=== PATIENT | female | born 1945 | race Hispanic/Latino ===

== ENCOUNTER 2022-01-05 20:40 | Inpatient (IN) | payer OTHER, MEDICARE ==
[~2022-01-05] VITALS: Ht 147.3 cm; Wt 80.8 kg
[2022-01-05 21:19] LABS: EOSINOPHILS % (AUTO) 2.3 % (0.0-8.0); HEMATOCRIT 33.7 % (36-48); LYMPHOCYTES % (AUTO) 24.3 % (21.0-51.0); MEAN CORPUSCULAR HEMOGLOBIN 27.3 pg (27.0-33.0); MEAN CORPUSCULAR HGB CONC 34.1 g/dL (32.0-36.0); MONOCYTES % (AUTO) 8.4 % (3.0-13.0); NEUTROPHILS % (AUTO) 63.8 % (40.0-77.0); PLATELET COUNT (AUTO) 82 K/uL (130-400); RED BLOOD CELL COUNT(AUTO) 4.21 MIL/uL (4.00-5.50); RED CELL DISTRIBUTION WIDTH 16.2 % (11.0-15.5); WHITE BLOOD COUNT (AUTO) 4.8 K/uL (4.8-10.8)
[2022-01-05 21:31] LABS: INR 1.19 (0.85-1.15); PROTHROMBIN TIME 12.8 SEC (9.6-11.6)
[2022-01-05 21:33] LABS: PARTIAL THROMBOPLASTIN TIME 24.5 SEC (26.3-35.5)
[2022-01-05] MEDS ORDERED: GABA-529 PO (21:33)
[2022-01-05] MEDS ORDERED: SPIR1TAB4 PO (21:33)
[2022-01-05] MEDS ORDERED: TOPI50TA24 PO (21:33)
[2022-01-05] MEDS ORDERED: ERGO500093 PO (21:33)
[2022-01-05] MEDS ORDERED: MECL-160 PO (21:33)
[2022-01-05] MEDS ORDERED: ROSU5TAB12 PO (21:33)
[2022-01-05] MEDS ORDERED: LACT10SO32 PO (21:33)
[2022-01-05] MEDS ORDERED: MIRA50TA PO (21:33)
[2022-01-05] MEDS ORDERED: RIFA550T PO (21:33)
[2022-01-05 21:34] LABS: CREATININE 1.9 mg/dL (0.5-1.5); POTASSIUM 3.8 mmol/L (3.5-5.1)
[2022-01-05 21:41] LABS: ALBUMIN 3.4 g/dL (3.5-5.0); BILIRUBIN,TOTAL 1.4 mg/dL (0.2-1.0); TOTAL PROTEIN, SERUM 7.2 g/dL (6.0-8.3)
[2022-01-05] MEDS ORDERED: INSULIN HUMULIN R 100 UNIT/ML 3ML SQ ONE (22:00)
[2022-01-05] MEDS ORDERED: LACTULOSE 20 GM/30 ML UDCUP PO ONE (22:00)
[2022-01-05] MEDS ORDERED: 0.9%NACL 1000ML 1,000 ML IV SCH (22:00)
[2022-01-05] MEDS ORDERED: ACETAMINOPHEN 325 MG TAB PO PRN (23:00)
[2022-01-05] MEDS ORDERED: GLUCAGON 1MG KIT 1 MG ML IM PRN (23:00)
[2022-01-05] MEDS ORDERED: GABAPENTIN 100 MG CAPSULE PO PRN (23:00)
[2022-01-05] MEDS ORDERED: ONDANSETRON 4MG INJ IVP PRN (23:00)
[2022-01-05] MEDS: PHARMACY COMMUNICATION MISC SCH (23:00)
[2022-01-05] MEDS ORDERED: DEXTROSE 50%-WATER 50 ML DISP.SYRIN IV PRN (23:00)
[2022-01-05] MEDS ORDERED: INSULIN HUMULIN R 100 UNIT/ML 3ML ONE (23:08)
[2022-01-05 23:14] LABS: HEMOGLOBIN A1C 11.5 % (4.0-6.0)
[2022-01-05] MEDS ORDERED: INSLAN SQ (23:15)
[2022-01-05] MEDS: LACTULOSE 20 GM/30 ML UDCUP PO SCH (23:29)
[2022-01-06] VITALS (7 sets, daily range): BP systolic 109–127; BP diastolic 53–72
[2022-01-06] MEDS ORDERED: INSLAN SQ (00:09)
[2022-01-06] MEDS ORDERED: GUAIFENESIN-DM 200/20 MG 10 ML PO PRN (01:30)
[2022-01-06 05:12] LABS: BASOPHILS % (AUTO) 1.1 % (0.0-5.0); EOSINOPHILS % (AUTO) 3.1 % (0.0-8.0); LYMPHOCYTES % (AUTO) 35.2 % (21.0-51.0); MEAN CORPUSCULAR HEMOGLOBIN 26.6 pg (27.0-33.0); MEAN CORPUSCULAR HGB CONC 33.1 g/dL (32.0-36.0); MEAN CORPUSCULAR VOLUME 80.2 fL (79-99); MONOCYTES % (AUTO) 10.2 % (3.0-13.0); NEUTROPHILS % (AUTO) 50.2 % (40.0-77.0); PLATELET COUNT (AUTO) 80 K/uL (130-400); RED BLOOD CELL COUNT(AUTO) 3.99 MIL/uL (4.00-5.50); WHITE BLOOD COUNT (AUTO) 4.5 K/uL (4.8-10.8)
[2022-01-06 05:36] LABS: BILIRUBIN,TOTAL 1.5 mg/dL (0.2-1.0); CREATININE 1.8 mg/dL (0.5-1.5); POTASSIUM 3.4 mmol/L (3.5-5.1); TOTAL PROTEIN, SERUM 6.6 g/dL (6.0-8.3)
[2022-01-06] MEDS: LACTULOSE 20 GM/30 ML UDCUP PO SCH (05:42)
[2022-01-06 07:15] LABS: APPEARANCE,URINE TURBID (CLEAR); BILIRUBIN,URINE SMALL (NEGATIVE); COLOR,URINE BROWN (YELLOW); GLUCOSE, URINE (UA) >=1000 mg/dL (NEGATIVE); KETONES,URINE NEGATIVE (NEGATIVE); LEUKOCYTE ESTERASE ,URINE TRACE (NEGATIVE); NITRATE,URINE POSITIVE (NEGATIVE); OCCULT BLOOD,URINE LARGE (NEGATIVE); PH,URINE 5.5 (5.0-8.0); PROTEIN,URINE 100 mg/dL (NEGATIVE); UROBILINOGEN,URINE 0.2 mg/dL (0.2-1.0)
[2022-01-06 07:29] LABS: RBC,URINE TNTC /HPF (0-1)
[2022-01-06 07:31] LABS: BACTERIA,URINE Moderate /HPF (None Seen); YEAST,URINE BUDDING Moderate /HPF (None Seen)
[2022-01-06] MEDS: INSULIN HUMULIN R 100 UNIT/ML 3ML SQ SCH ×4 (07:38→21:42)
[2022-01-06] MEDS ORDERED: ASPIRIN 81 MG EC TAB PO SCH (09:00)
[2022-01-06] MEDS ORDERED: [UNRECOGNIZED DRUG - OTHER] PO SCH (09:00)
[2022-01-06] MEDS: FAMOTIDINE 20MG TAB PO SCH ×2 (10:12→21:40)
[2022-01-06] MEDS: RIFAXIMIN 550 MG TABLET PO SCH ×2 (10:12→21:40)
[2022-01-06] MEDS: PHARMACY COMMUNICATION MISC SCH ×2 (11:00→23:00)
[2022-01-06] MEDS ORDERED: LACTULOSE 20 GM/30 ML UDCUP PR ONE (12:00)
[2022-01-06] MEDS ORDERED: MEROPENEM 500 MG VIAL IVP SCH (12:45)
[2022-01-06] MEDS ORDERED: THIAMINE HCL 100 MG/ML 2ML VIAL IVP SCH (12:45)
[2022-01-06] MEDS ORDERED: BISACODYL 10 MG SUPP.RECT RC ONE (15:00)
[2022-01-06] MEDS: 0.9%NACL 1000ML 1,000 ML IV SCH (15:02)
[2022-01-06] MEDS ORDERED: LACTULOSE 20 GM/30 ML UDCUP ONE (15:35)
[2022-01-06] MEDS ORDERED: LACTULOSE 20 GM/30 ML UDCUP PO SCH (18:00)
[2022-01-06] MEDS ORDERED: (Rosuvastatin Calcium 5 MG) PO SCH (21:00)
[2022-01-06] MEDS ORDERED: INSULIN GLARGINE 100 UNITS/ML 10 ML VIAL SQ SCH (21:00)
[2022-01-06] MEDS: TOPIRAMATE 25 MG TABLET PO SCH (21:40)
[2022-01-07] MEDS: 0.9%NACL 1000ML 1,000 ML IV SCH ×2 (02:18→16:36)
[2022-01-07 04:20] VITALS: BP 117/69
[2022-01-07] MEDS: CEFTRIAXONE 1G VIAL IVP SCH (06:32)
[2022-01-07 07:23] LABS: BASOPHILS % (AUTO) 0.7 % (0.0-5.0); EOSINOPHILS % (AUTO) 2.1 % (0.0-8.0); HEMATOCRIT 31.9 % (36-48); LYMPHOCYTES % (AUTO) 19.2 % (21.0-51.0); MEAN CORPUSCULAR HEMOGLOBIN 27.4 pg (27.0-33.0); MEAN CORPUSCULAR HGB CONC 34.5 g/dL (32.0-36.0); MEAN CORPUSCULAR VOLUME 79.4 fL (79-99); MONOCYTES % (AUTO) 8.4 % (3.0-13.0); NEUTROPHILS % (AUTO) 69.3 % (40.0-77.0); PLATELET COUNT (AUTO) 74 K/uL (130-400); RED BLOOD CELL COUNT(AUTO) 4.02 MIL/uL (4.00-5.50); RED CELL DISTRIBUTION WIDTH 16.8 % (11.0-15.5); WHITE BLOOD COUNT (AUTO) 5.7 K/uL (4.8-10.8)
[2022-01-07] MEDS ORDERED: INSULIN HUMULIN R 100 UNIT/ML 3ML SQ SCH (07:30)
[2022-01-07] MEDS: LACTULOSE 20 GM/30 ML UDCUP PO SCH ×3 (07:38→18:29)
[2022-01-07] MEDS: INSULIN HUMULIN R 100 UNIT/ML 3ML SQ SCH ×6 (07:39→20:52)
[2022-01-07 07:46] LABS: ALBUMIN 3.1 g/dL (3.5-5.0); BILIRUBIN,TOTAL 2.2 mg/dL (0.2-1.0); CREATININE 1.9 mg/dL (0.5-1.5); POTASSIUM 3.2 mmol/L (3.5-5.1); TOTAL PROTEIN, SERUM 6.8 g/dL (6.0-8.3)
[2022-01-07 08:00] VITALS: BP 129/64
[2022-01-07] MEDS ORDERED: INSULIN GLARGINE 100 UNITS/ML 10 ML VIAL SQ SCH (08:00)
[2022-01-07] MEDS: RIFAXIMIN 550 MG TABLET PO SCH ×3 (10:24→20:50)
[2022-01-07] MEDS: FAMOTIDINE 20MG TAB PO SCH ×3 (10:24→20:50)
[2022-01-07] MEDS: PHARMACY COMMUNICATION MISC SCH ×2 (11:00→22:45)
[2022-01-07 12:00] VITALS: BP 137/66
[2022-01-07 16:00] VITALS: BP 124/62
[2022-01-07] MEDS ORDERED: POTASSIUM CHLORIDE 10% ELIXIR 20 MEQ/15 ML UDCUP PO PRN (17:00)
[2022-01-07] MEDS ORDERED: POTASSIUM CHLORIDE 20MEQ/100ML 100 ML IV PRN (17:00)
[2022-01-07] MEDS ORDERED: LIDOCAINE HCL-MPF 1% 2ML VIAL IV PRN (17:00)
[2022-01-07] MEDS: KCL 20 MEQ ERTAB PO PRN (17:25)
[2022-01-07 20:00] VITALS: BP_SYST 108; BP_SYST 124; BP_DIAS 63; BP_DIAS 76
[2022-01-07] MEDS: TOPIRAMATE 25 MG TABLET PO SCH ×2 (20:44→20:50)
[2022-01-08] VITALS: BP_SYST 109; BP_SYST 123; BP_DIAS 63; BP_DIAS 68
[2022-01-08] MEDS: LACTULOSE 20 GM/30 ML UDCUP PO SCH ×4 (00:05→18:39)
[2022-01-08 04:00] VITALS: BP 115/52
[2022-01-08 05:37] LABS: HEMATOCRIT 30.9 % (36-48); MEAN CORPUSCULAR HEMOGLOBIN 27.4 pg (27.0-33.0); MEAN CORPUSCULAR HGB CONC 33.7 g/dL (32.0-36.0); MEAN CORPUSCULAR VOLUME 81.5 fL (79-99); RED BLOOD CELL COUNT(AUTO) 3.79 MIL/uL (4.00-5.50); WHITE BLOOD COUNT (AUTO) 4.3 K/uL (4.8-10.8)
[2022-01-08 05:50] LABS: CREATININE 1.6 mg/dL (0.5-1.5); POTASSIUM 3.6 mmol/L (3.5-5.1)
[2022-01-08] MEDS: CEFTRIAXONE 1G VIAL IVP SCH (06:32)
[2022-01-08] MEDS: KCL 20 MEQ ERTAB PO PRN (06:33)
[2022-01-08] MEDS: INSULIN HUMULIN R 100 UNIT/ML 3ML SQ SCH ×7 (06:34→21:33)
[2022-01-08 08:00] VITALS: BP 107/48
[2022-01-08] MEDS ORDERED: INSULIN GLARGINE 100 UNITS/ML 10 ML VIAL SQ SCH (08:00)
[2022-01-08] MEDS: RIFAXIMIN 550 MG TABLET PO SCH ×2 (10:05→21:28)
[2022-01-08] MEDS: FAMOTIDINE 20MG TAB PO SCH ×2 (10:05→21:28)
[2022-01-08] MEDS: 0.9%NACL 1000ML 1,000 ML IV SCH (10:08)
[2022-01-08] MEDS: PHARMACY COMMUNICATION MISC SCH ×2 (11:00→23:00)
[2022-01-08 12:00] VITALS: BP 117/61
[2022-01-08] MEDS ORDERED: VANCOMYCIN PROTOCOL PER PHARMACY IV SCH (13:00)
[2022-01-08] MEDS: VANCOMYCIN 1.25 GM/250 ML BAG 250 ML IV SCH (13:33)
[2022-01-08 16:00] VITALS: BP 111/59
[2022-01-08 20:00] VITALS: BP 121/63
[2022-01-08] MEDS: TOPIRAMATE 25 MG TABLET PO SCH (21:28)
[2022-01-09] VITALS (13 sets, daily range): BP systolic 100–152; BP diastolic 54–86
[2022-01-09] MEDS: 0.9%NACL 1000ML 1,000 ML IV SCH ×2 (01:22→12:44)
[2022-01-09] MEDS: LACTULOSE 20 GM/30 ML UDCUP PO SCH ×4 (01:22→19:23)
[2022-01-09] MEDS: INSULIN HUMULIN R 100 UNIT/ML 3ML SQ SCH ×7 (05:56→21:38)
[2022-01-09] MEDS: RIFAXIMIN 550 MG TABLET PO SCH ×2 (09:11→21:30)
[2022-01-09] MEDS: FAMOTIDINE 20MG TAB PO SCH ×2 (09:12→21:30)
[2022-01-09] MEDS: INSULIN GLARGINE 100 UNITS/ML 10 ML VIAL SQ SCH (09:21)
[2022-01-09 12:03] LABS: MEAN CORPUSCULAR HEMOGLOBIN 27.4 pg (27.0-33.0); MEAN CORPUSCULAR HGB CONC 33.3 g/dL (32.0-36.0); MEAN CORPUSCULAR VOLUME 82.2 fL (79-99); PLATELET COUNT (AUTO) 56 K/uL (130-400); RED BLOOD CELL COUNT(AUTO) 3.65 MIL/uL (4.00-5.50); WHITE BLOOD COUNT (AUTO) 3.1 K/uL (4.8-10.8)
[2022-01-09 12:16] LABS: CREATININE 1.5 mg/dL (0.5-1.5); POTASSIUM 4.1 mmol/L (3.5-5.1)
[2022-01-09] MEDS ORDERED: LACTULOSE 20 GM/30 ML UDCUP PR SCH (16:00)
[2022-01-09] MEDS: TOPIRAMATE 25 MG TABLET PO SCH (21:31)
[2022-01-09] MEDS: PHARMACY COMMUNICATION MISC SCH (23:00)
[2022-01-10] MEDS: LACTULOSE 20 GM/30 ML UDCUP PO SCH ×4 (00:21→18:16)
[2022-01-10] MEDS: 0.9%NACL 1000ML 1,000 ML IV SCH ×2 (03:27→16:09)
[2022-01-10 03:56] VITALS: BP 116/56
[2022-01-10 04:39] LABS: HEMATOCRIT 28.9 % (36-48); MEAN CORPUSCULAR HGB CONC 32.2 g/dL (32.0-36.0); MEAN CORPUSCULAR VOLUME 83.8 fL (79-99); RED BLOOD CELL COUNT(AUTO) 3.45 MIL/uL (4.00-5.50); RED CELL DISTRIBUTION WIDTH 16.8 % (11.0-15.5); WHITE BLOOD COUNT (AUTO) 3.2 K/uL (4.8-10.8)
[2022-01-10 04:57] LABS: CREATININE 1.5 mg/dL (0.5-1.5); POTASSIUM 3.4 mmol/L (3.5-5.1)
[2022-01-10] MEDS: INSULIN HUMULIN R 100 UNIT/ML 3ML SQ SCH ×7 (06:46→20:51)
[2022-01-10 08:00] VITALS: BP 111/58
[2022-01-10] MEDS: FAMOTIDINE 20MG TAB PO SCH ×2 (09:57→20:49)
[2022-01-10] MEDS: RIFAXIMIN 550 MG TABLET PO SCH ×2 (09:57→20:49)
[2022-01-10] MEDS: INSULIN GLARGINE 100 UNITS/ML 10 ML VIAL SQ SCH (10:11)
[2022-01-10] MEDS: PHARMACY COMMUNICATION MISC SCH ×2 (11:00→23:00)
[2022-01-10 11:44] VITALS: BP 115/54
[2022-01-10] MEDS ORDERED: LACTULOSE 20 GM/30 ML UDCUP PR SCH (12:00)
[2022-01-10] MEDS ORDERED: PHARMACY COMMUNICATION MISC SCH (12:00)
[2022-01-10] MEDS: VANCOMYCIN 1.25 GM/250 ML BAG 250 ML IV SCH (13:00)
[2022-01-10 16:43] VITALS: BP 115/54
[2022-01-10] MEDS: KCL 20 MEQ ERTAB PO PRN ×2 (17:21→18:46)
[2022-01-10 20:21] VITALS: BP 112/54
[2022-01-10] MEDS: TOPIRAMATE 25 MG TABLET PO SCH (20:49)
[2022-01-11] VITALS (7 sets, daily range): BP systolic 95–114; BP diastolic 35–54
[2022-01-11] MEDS: LACTULOSE 20 GM/30 ML UDCUP PO SCH ×4 (00:18→17:12)
[2022-01-11] MEDS: 0.9%NACL 1000ML 1,000 ML IV SCH ×2 (06:23→20:58)
[2022-01-11] MEDS: INSULIN HUMULIN R 100 UNIT/ML 3ML SQ SCH ×8 (06:23→20:37)
[2022-01-11 07:55] LABS: HEMATOCRIT 28.2 % (36-48); MEAN CORPUSCULAR HEMOGLOBIN 27.1 pg (27.0-33.0); MEAN CORPUSCULAR HGB CONC 31.6 g/dL (32.0-36.0); MEAN CORPUSCULAR VOLUME 85.7 fL (79-99); PLATELET COUNT (AUTO) 52 K/uL (130-400); RED BLOOD CELL COUNT(AUTO) 3.29 MIL/uL (4.00-5.50); RED CELL DISTRIBUTION WIDTH 17.3 % (11.0-15.5); WHITE BLOOD COUNT (AUTO) 3.3 K/uL (4.8-10.8)
[2022-01-11] MEDS: RIFAXIMIN 550 MG TABLET PO SCH ×2 (08:22→20:41)
[2022-01-11] MEDS: FAMOTIDINE 20MG TAB PO SCH ×2 (08:22→20:41)
[2022-01-11] MEDS: INSULIN GLARGINE 100 UNITS/ML 10 ML VIAL SQ SCH (08:26)
[2022-01-11 08:47] LABS: CREATININE 1.3 mg/dL (0.5-1.5); MAGNESIUM 1.6 mg/dL (1.80-2.40); POTASSIUM 3.6 mmol/L (3.5-5.1)
[2022-01-11 08:56] LABS: EOSINOPHILS % (MANUAL) 2 % (1-6); LYMPHOCYTES % (MANUAL) 26 % (22-44); MAN.DIFF COMMENT-IMPRESSION MANUAL DIFFERENTIAL; MONOCYTES % (MANUAL) 2 % (2-9); PLATELET MORPHOLOGY COMMENT DECREASED; SEGMENTED NEUTROPHILS % 70 % (40-70)
[2022-01-11] MEDS: PHARMACY COMMUNICATION MISC SCH ×2 (11:00→23:00)
[2022-01-11] MEDS: KCL 20 MEQ ERTAB PO PRN ×2 (12:09→16:35)
[2022-01-11] MEDS ORDERED: MAGNESIUM 2GM PREMIX 50ML 50 ML IV PRN (16:00)
[2022-01-11] MEDS: TOPIRAMATE 25 MG TABLET PO SCH (20:41)
[2022-01-12] MEDS: LACTULOSE 20 GM/30 ML UDCUP PO SCH ×5 (00:33→23:55)
[2022-01-12 03:25] VITALS: BP 113/53
[2022-01-12 04:42] LABS: HEMATOCRIT 27.1 % (36-48); MEAN CORPUSCULAR HEMOGLOBIN 27.4 pg (27.0-33.0); MEAN CORPUSCULAR HGB CONC 32.1 g/dL (32.0-36.0); MEAN CORPUSCULAR VOLUME 85.2 fL (79-99); RED BLOOD CELL COUNT(AUTO) 3.18 MIL/uL (4.00-5.50); RED CELL DISTRIBUTION WIDTH 17.4 % (11.0-15.5); WHITE BLOOD COUNT (AUTO) 2.7 K/uL (4.8-10.8)
[2022-01-12 04:52] LABS: CREATININE 1.2 mg/dL (0.5-1.5); POTASSIUM 4.1 mmol/L (3.5-5.1)
[2022-01-12] MEDS: INSULIN HUMULIN R 100 UNIT/ML 3ML SQ SCH ×7 (06:19→21:00)
[2022-01-12 08:00] VITALS: BP 103/52
[2022-01-12] MEDS: INSULIN GLARGINE 100 UNITS/ML 10 ML VIAL SQ SCH (09:00)
[2022-01-12] MEDS ORDERED: ERGOCALCIFEROL (VITAMIN D2) 50,000 UNIT CAPSULE PO SCH (09:00)
[2022-01-12] MEDS: FAMOTIDINE 20MG TAB PO SCH ×2 (09:40→21:53)
[2022-01-12] MEDS: RIFAXIMIN 550 MG TABLET PO SCH ×2 (09:40→21:53)
[2022-01-12] MEDS: 0.9%NACL 1000ML 1,000 ML IV SCH (12:34)
[2022-01-12] MEDS: VANCOMYCIN 1.25 GM/250 ML BAG 250 ML IV SCH (12:44)
[2022-01-12 16:00] VITALS: BP 121/47
[2022-01-12 20:00] VITALS: BP 116/46
[2022-01-12] MEDS: TOPIRAMATE 25 MG TABLET PO SCH (21:53)
[2022-01-13] VITALS: BP 106/40
[2022-01-13 04:00] VITALS: BP 105/47
[2022-01-13 05:33] LABS: HEMATOCRIT 26.8 % (36-48); MEAN CORPUSCULAR HGB CONC 31.7 g/dL (32.0-36.0); MEAN CORPUSCULAR VOLUME 85.1 fL (79-99); PLATELET COUNT (AUTO) 48 K/uL (130-400); RED BLOOD CELL COUNT(AUTO) 3.15 MIL/uL (4.00-5.50); RED CELL DISTRIBUTION WIDTH 17.8 % (11.0-15.5); WHITE BLOOD COUNT (AUTO) 2.7 K/uL (4.8-10.8)
[2022-01-13] MEDS: LACTULOSE 20 GM/30 ML UDCUP PO SCH ×2 (05:48→12:30)
[2022-01-13] MEDS: 0.9%NACL 1000ML 1,000 ML IV SCH (05:48)
[2022-01-13 06:09] LABS: ALBUMIN 2.1 g/dL (3.5-5.0); BILIRUBIN,TOTAL 0.8 mg/dL (0.2-1.0); CREATININE 1.4 mg/dL (0.5-1.5); POTASSIUM 3.8 mmol/L (3.5-5.1)
[2022-01-13 06:32] LABS: BASOPHILS % (MANUAL) 1 % (0-2); EOSINOPHILS % (MANUAL) 4 % (1-6); LYMPHOCYTES % (MANUAL) 26 % (22-44); MONOCYTES % (MANUAL) 2 % (2-9); SEGMENTED NEUTROPHILS % 67 % (40-70)
[2022-01-13 06:33] LABS: MAN.DIFF COMMENT-IMPRESSION MANUAL DIFFERENTIAL; PLATELET MORPHOLOGY COMMENT DECREASED
[2022-01-13] MEDS: INSULIN HUMULIN R 100 UNIT/ML 3ML SQ SCH ×6 (06:49→17:02)
[2022-01-13 08:00] VITALS: BP 115/50
[2022-01-13] MEDS: INSULIN GLARGINE 100 UNITS/ML 10 ML VIAL SQ SCH (08:36)
[2022-01-13] MEDS: RIFAXIMIN 550 MG TABLET PO SCH (08:40)
[2022-01-13] MEDS: FAMOTIDINE 20MG TAB PO SCH (08:40)
[2022-01-13 12:00] VITALS: BP 103/46
[2022-01-13] MEDS ORDERED: INSULIN GLARGINE 100 UNITS/ML 10 ML VIAL SQ SCH (13:00)
== END 2022-01-13 17:45 | DRG 441 ==
LOC: EDH 20:40 → EDHIP 21:57 → 3DH 01-06 00:12
PROVIDERS: ADMIT Internal Medicine; ATTEND Internal Medicine
DX: K72.90 Hepatic failure, unspecified without coma (principal); G93.41 Metabolic encephalopathy; N17.9 Acute kidney failure, unspecified; N39.0 Urinary tract infection, site not specified; K74.60 Unspecified cirrhosis of liver; E11.65 Type 2 diabetes mellitus with hyperglycemia; I10 Essential (primary) hypertension; Z87.440 Personal history of urinary (tract) infections; K59.00 Constipation, unspecified; B95.2 Enterococcus as the cause of diseases classified elsewhere; D69.6 Thrombocytopenia, unspecified; D64.9 Anemia, unspecified; E87.6 Hypokalemia; E66.9 Obesity, unspecified; Z90.710 Acquired absence of both cervix and uterus; Z85.3 Personal history of malignant neoplasm of breast; Z79.899 Other long term (current) drug therapy; Z79.4 Long term (current) use of insulin; Z83.3 Family history of diabetes mellitus; Z79.82 Long term (current) use of aspirin; Z68.37 Body mass index [BMI] 37.0-37.9, adult
CPT/HCPCS: 36415; 70450; 71045; 74176; 80048; 80053; 81001; 82140; 82948; 83036; 83735; 84145; 84484; 85025; 85027; 85610; 85651; 85730; 86140; 87077; 87088; 87186; 93005; 97039; G0378; J0696; J1815; J2185; J3411; J3475; J3480; J3490; J7030

== ENCOUNTER → 2023-03-25 | Outpatient (CLI) | payer MEDICARE ==
[~2023-03-25] MED LIST: ERGO500093 PO; GABA-529 PO; IOHEXOL 350 MG/ML 100ML INFUS..BTL IV ONE; LACT10SO85 PO; MECL-160 PO; MIRA50TA PO; RIFA550T PO; ROSU5TAB12 PO; SPIR1TAB4 PO; TOPI-255 PO
== END | disposition home or self-care (01) ==
LOC: RAH 07:59
PROVIDERS: ATTEND Internal Medicine Gastroenterology
DX: K74.69 Other cirrhosis of liver (principal); K76.89 Other specified diseases of liver; R16.1 Splenomegaly, not elsewhere classified; Z90.49 Acquired absence of other specified parts of digestive tract
CPT/HCPCS: 74170; Q9967

== ENCOUNTER 2023-08-30 16:26 | Emergency (ER) | payer MEDICARE ==
[~2023-08-30] VITALS: Ht 157.5 cm; Wt 74.8 kg
[~2023-08-30 16:26] MED LIST changes: -IOHEXOL 350 MG/ML 100ML INFUS..BTL IV ONE; -MECL-160 PO; +MECL-302 PO; -TOPI-255 PO; +TOPI-97 PO
[2023-08-30 16:28] VITALS: BP 133/98; PULSE 102; RESP 18
== END 2023-08-30 21:29 | disposition left against medical advice (07) ==
LOC: EDH 16:26
DX: R53.1 Weakness (principal); Z53.21 Procedure and treatment not carried out due to patient leaving prior to being seen by health care provider
CPT/HCPCS: 99281